=== PATIENT | female | born 1955 | race Hispanic/Latino ===

== ENCOUNTER 2017-08-08 22:58 | Emergency (ER) | payer BC ==
[~2017-08-08] VITALS: Ht 152.4 cm; Wt 67.6 kg
[2017-08-08] MEDS ORDERED: KETOROLAC TROMETHAMINE 30 MG/ML VIAL IV STA (23:16)
[2017-08-08] MEDS ORDERED: BROMFED DM COU118 ML PO (23:21)
[2017-08-08] MEDS ORDERED: TESSALON PERLE100 MG PO (23:21)
[2017-08-08] MEDS ORDERED: MONTELUKAST SOD10 MG PO (23:21)
[2017-08-08 23:27] VITALS: BP 151/80
== END 2017-08-08 23:50 | disposition home or self-care (01) ==
LOC: FSED 22:58
DX: J30.2 Other seasonal allergic rhinitis (principal); J00 Acute nasopharyngitis [common cold]; I10 Essential (primary) hypertension; E78.5 Hyperlipidemia, unspecified
CPT/HCPCS: 96372; 99282; J1885